=== PATIENT | female | born 1995 | race Caucasian/White ===

== ENCOUNTER → 2021-07-28 17:24 | Observation (INO) ==
[2021-07-27 23:45] LABS: Bilirubin,Urine Negative (Negative); Blood,Urine Negative (Negative); Clarity,Urine Clear (Clear); Color,Urine Light-Yellow (Yellow); Glucose,Urine (UA) Normal (Normal); Ketones,Urine 40 mg/dL (Negative); Leukocyte Esterase,Urine Large (Negative); Mucus,Urine Few per lpf (None-Few); Nitrite,Urine Negative (Negative); PH,Urine 7.5 pH Units (5.0-8.0); Protein,Urine 30 mg/dL (Neg-Trace); Specific Gravity,Urine > 1.030 (1.010-1.025); Squamous Epithelial Cell,Urine Many per hpf (None-Few); Urobilinogen,Urine Normal (Normal)
[~2021-07-28 17:24] MED LIST: *HR* HYDROcodone/Acet 5/325 mg TABLET PO PRN; *HR* Magnesium Sulfate 1 GM/2 ML VIAL IM ONE; *HR* OxyCODONE Immed Rel 5 MG TABLET PO ONE; Metoclopramide 10 MG/2 ML VIAL IVP PRN; Rho Immune Globulin 1,500 UNIT SYRINGE IM ONE; Ringers Solution, Lactated 1,000 ML IVC SCH
== END | disposition home or self-care (01) ==
LOC: 1NENULAB
PROVIDERS: ADMIT Advanced Practice Midwife; ATTEND Advanced Practice Midwife